=== PATIENT | female | born 1975 | race Caucasian/White ===

== ENCOUNTER 2017-06-20 12:49 | Emergency (ER) | payer MEDICAID ==
[~2017-06-20] VITALS: Ht 167.6 cm; Wt 57.0 kg
[2017-06-20 12:54] VITALS: BP 109/54; PULSE 59; RESP 18; TEMP 98.8; O2SAT 100
[2017-06-20] MEDS ORDERED: predniSONE 20 MG TAB PO ONE (13:30)
[2017-06-20] MEDS ORDERED: TRAM50TA PO (13:30)
[2017-06-20] MEDS ORDERED: PRED20 PO (13:30)
[2017-06-20] MEDS ORDERED: KETOROLAC TROMETHAMINE 60 MG/2 ML (IM) VIAL IM ONE (13:30)
--- NOTE | 2017-06-20 13:31 | PD ---
HPI Chief Complaint: Back/ Neck Pain or Injury Time Seen by Provider: 13:10 Travel History International Travel<30 days: No Contact w/Intl Traveler<30days: No Traveled to known affect area: No History of Present Illness HPI 41-year-old female complains of pain in the lower back. She describes numbness in the region of the left leg. The pain has been present for about 4 days. No similar prior episodes. The pain radiates posteriorly and inferiorly. She denies injury/excessive use. No history of cancer. No history of immunomodulation steroid use. Patient denies IV drug abuse. No fever. PFSH Past Medical History ?: Unknown Social History Tobacco Use: No Allergies-Medications (Allergen,Severity, Reaction): Coded Allergies: No Known Allergies (Verified Allergy, Unknown, 06/20/17) Reported Meds & Prescriptions Reported Meds & Active Scripts Active No Active Prescriptions or Reported Medications Review of Systems General / Constitutional: No: Fever Eyes: No: Diploplia HENT: No: Headaches Cardiovascular: No: Chest Pain or Discomfort Respiratory: No: Shortness of Breath Physical Exam Narrative GENERAL: 41-year-old female pleasant well-nourished well-developed no acute distress Vital Signs Date Time Temp Pulse Resp B/P (MAP) Pulse Ox O2 Delivery O2 Flow Rate FiO2 06/20/17 12:54 98.8 59 18 109/54 (72) 100 SKIN: Warm and dry. HEAD: Normocephalic. EYES: No scleral icterus. No injection or drainage. NECK: Supple, trachea midline. No JVD or lymphadenopathy. CARDIOVASCULAR: Regular rate and rhythm without murmurs, gallops, or rubs. RESPIRATORY: Breath sounds equal bilaterally. No accessory muscle use. GASTROINTESTINAL: Abdomen soft, non-tender, nondistended. MUSCULOSKELETAL: No cyanosis, or edema. Minimal tenderness to palpation overlying the region of the right iliac crest. Patellar tendon reflexes are 2+ bilaterally. No ankle clonus. Patient is ambulatory. No focal C-spine tenderness no focal spinal process. BACK: Nontender without obvious deformity. No CVA tenderness. Data Data Last Documented VS Vital Signs Date Time Temp Pulse Resp B/P (MAP) Pulse Ox O2 Delivery O2 Flow Rate FiO2 06/20/17 12:54 98.8 59 18 109/54 (72) 100 Orders Orders Ketorolac Inj (Toradol Inj) (06/20/17 13:30) Prednisone (Deltasone) (06/20/17 13:30) Ed Discharge Order (06/20/17 13:27) MDM Medical Decision Making Medical Screen Exam Complete: Yes Emergency Medical Condition: Yes Medical Record Reviewed: Yes Differential Diagnosis Sciatica, abscess, myofascial strain Narrative Course Acute lumbosacral radiculopathy. Scripts as below. Diagnosis Primary Impression: Lumbosacral radiculopathy Referrals: Primary Care Physician as needed Med/Other Pt SpecificInfo: Prescription(s) given Scripts Tramadol (Tramadol) 50 Mg Tab 50 MG PO Q8H Y for PAIN, #20 TAB 0 Refills Prov: Acosta Way MD 06/20/17 Prednisone (Prednisone) 20 Mg Tab 40 MG PO ONCE for 4 Days, #1 TAB 0 Refills Prov: Acosta Way MD 06/20/17 Disposition: 01 DISCHARGE HOME Condition: Stable Acosta Way MD June 20, 2017 13:31
== END 2017-06-20 13:50 | disposition home or self-care (01) ==
LOC: NEPD 12:49
DX: M54.17 Radiculopathy, lumbosacral region (principal)
CPT/HCPCS: 96372; 99283; J1885; J7512